=== PATIENT | female | born 1945 | race Two or more races ===

== ENCOUNTER 2019-11-11 09:26 | Outpatient (CLI) | payer OTHER | END 2019-11-11 09:33 | disposition home or self-care (01) | LOC: RX STUDY 09:26 | PROVIDERS: ATTEND Otolaryngology Plastic Surgery within the Head & Neck | DX: R13.19 Other dysphagia (principal) ==

== ENCOUNTER 2020-02-14 08:08 | Outpatient (CLI) | payer OTHER | END 2020-02-14 08:15 | disposition home or self-care (01) | LOC: TOM 08:08 | DX: Z12.11 Encounter for screening for malignant neoplasm of colon (principal) ==

== ENCOUNTER 2020-04-14 05:52 | Inpatient (IN) | payer OTHER ==
[~2020-04-14 05:52] MED LIST: AMLODIPINE BESY10 MG PO; GEMFIBROZIL600 MG PO
[2020-04-20] MEDS ORDERED: BACTRIM DS TAB1 EACH (08:11)
[2020-04-20] MEDS ORDERED: CEFADROXIL500 MG (08:11)
[2020-04-21] MEDS ORDERED: ULTRACET PO (15:00)
== END 2020-04-21 21:17 | DRG 541 ==
LOC: CIR.AMB 05:52 → O/R 10:43 → SURH 10:43
PROVIDERS: ADMIT Orthopaedic Surgery; ATTEND Orthopaedic Surgery
PROC: 0YB Anatomical Regions, Lower Extremities, Excision (ICD-10-PCS; 2020-04-14)
PROC: 0YPB0YZ Removal of Other Device from Left Lower Extremity, Open Approach (ICD-10-PCS; principal; 2020-04-14 07:00)
PROC: 02HV33Z Insertion of Infusion Device into Superior Vena Cava, Percutaneous Approach (ICD-10-PCS; 2020-04-20)
DX: M86.172 Other acute osteomyelitis, left ankle and foot (principal); T84.69XD Infection and inflammatory reaction due to internal fixation device of other site, subsequent encounter; S82.842D Displaced bimalleolar fracture of left lower leg, subsequent encounter for closed fracture with routine healing; B95.62 Methicillin resistant Staphylococcus aureus infection as the cause of diseases classified elsewhere; I10 Essential (primary) hypertension

== ENCOUNTER 2022-06-22 08:15 | Inpatient (IN) | payer OTHER ==
[~2022-06-22] VITALS: Ht 149.9 cm; Wt 63.5 kg
[~2022-06-22 08:15] MED LIST changes: +BACTRIM DS TAB1 EACH; +CEFADROXIL500 MG; +ULTRACET PO
[2022-06-28] MEDS ORDERED: ALL DAY ALLERGY10 MG (08:21)
[2022-06-28] MEDS ORDERED: BACLOFEN20 MG (08:21)
[2022-06-28] MEDS ORDERED: AMLODIPINE-BEN1 EAC3 (08:21)
[2022-06-30] MEDS ORDERED: ELIQUIS2.5 MG PO (15:30)
[2022-06-30] MEDS ORDERED: PERCOCET 5-3251 EACH PO (15:30)
[2022-06-30] MEDS ORDERED: CEFADROXIL500 MG PO (15:30)
[2022-07-01] MEDS ORDERED: ELIQUIS2.5 MG PO (07:52)
[2022-07-01] MEDS ORDERED: PERCOCET 5-3251 EACH PO (07:52)
[2022-07-01] MEDS ORDERED: DUI500 PO (07:52)
== END 2022-07-01 13:34 | DRG 470 ==
LOC: SURG 06-28 05:10 → O/R 06-28 05:10 → SURG 06-28 08:15
PROVIDERS: ADMIT Orthopaedic Surgery; ATTEND Orthopaedic Surgery
PROC: 0MNN0ZZ Release Right Knee Bursa and Ligament, Open Approach (ICD-10-PCS; 2022-06-28)
PROC: 0SRC0JZ Replacement of Right Knee Joint with Synthetic Substitute, Open Approach (ICD-10-PCS; principal; 2022-06-28 18:15)
DX: M17.11 Unilateral primary osteoarthritis, right knee (principal); D62 Acute posthemorrhagic anemia; M22.11 Recurrent subluxation of patella, right knee; I10 Essential (primary) hypertension